=== PATIENT | female | born 2000 | race Two or more races ===

== ENCOUNTER → 2025-01-11 | Outpatient (CLI) | payer MEDICAID ==
[2025-01-11 14:38] LABS: Basophils # (auto) 0 10 ^3/uL (0-0.2); Basophils % (auto) 0.2 % (0.0-2.0); Eosinophils # (auto) 0.1 10 ^3/uL (0-0.8); Eosinophils % (auto) 1.4 % (0.0-7.0); Hematocrit 36.1 % (36.0-46.0); Hemoglobin 12.1 g/dL (12.2-16.2); Lymphocytes # (auto) 1.6 10 ^3/uL (0.4-5.4); Lymphocytes % (auto) 15.8 % (10.0-50.0); Mean Corpuscular Hemoglobin 26.1 pg (28.0-32.0); Mean Corpuscular Hgb Conc. 33.4 g/dL (32.0-36.0); Monocytes # (auto) 0.5 10 ^3/uL (0-1.3); Monocytes % (auto) 5.3 % (0.0-12.0); Neutrophils % (auto) 77.3 % (37.0-80.0); Platelet Count (auto) 289 10^3/uL (140-450); Red Blood Cells 4.63 10^6/uL (4.0-5.20); Red Cell Distribution Width 15.8 % (11.8-14.3); White Blood Cell 10.3 10^3/uL (4.4-10.8)
[2025-01-11 14:56] LABS: Amphetamine Screen, Urine Neg (NEGATIVE); Barbiturate Scree,Urine Neg (NEGATIVE); Benzodiazephine Screen, Urine Neg (NEGATIVE); Cocaine Screen, Urine Neg (NEGATIVE)
[2025-01-11 14:57] LABS: Cannabinoid Screen, Urine Pos (NEGATIVE); Opiate Scree,Urine Neg (NEGATIVE); Phencyclidine Screen, Urine Neg (NEGATIVE)
[2025-01-12 20:07] LABS: Chlamydia Trachomatis, NAA Negative (Negative); Neisseria gonorrhoeae, NAA Negative (Negative)
== END | disposition home or self-care (01) ==
LOC: LAB 14:06
PROVIDERS: ATTEND Obstetrics & Gynecology
DX: O23.40 Unspecified infection of urinary tract in pregnancy, unspecified trimester (principal); Z31.430 Encounter of female for testing for genetic disease carrier status for procreative management; Z20.09 Contact with and (suspected) exposure to other intestinal infectious diseases; N39.0 Urinary tract infection, site not specified; Z3A.00 Weeks of gestation of pregnancy not specified
CPT/HCPCS: 36415; 80307; 83036; 84144; 84702; 85025; 86703; 86762; 86780; 86850; 86900; 86901; 87086; 87340

== ENCOUNTER 2025-03-30 12:10 | Inpatient (IN) | payer MEDICAID ==
[~2025-03-30] VITALS: Ht 154.9 cm; Wt 128.4 kg
[2025-03-30 12:53] LABS: Hematocrit 32.6 % (36.0-46.0); Hemoglobin 10.7 g/dL (12.2-16.2); Mean Corpuscular Hemoglobin 25.4 pg (28.0-32.0); Mean Corpuscular Volume 77.5 fL (80.0-100.0); Nucleated Red Blood Cells % 0.0 %
[2025-03-30 12:57] LABS: Urine Protein, UAD TRACE (Negative)
[2025-03-30 13:07] LABS: Protein, Urine 35.4 mg/dL (1-14)
[2025-03-30 13:09] LABS: Albumin 3.7 g/dL (3.2-4.8); Anion Gap 7 (5-15); BUN/Creatinine Ratio 14.5 (10.0-20.0); Bilirubin, Total 0.5 mg/dL (0.2-1.0); Blood Urea Nitrogen 10 mg/dL (9-23); Carbon Dioxide 23 mmol/L (20-31); Glucose 84 mg/dL (74-106); Potassium 4.3 mmol/L (3.5-5.1); Sodium 139 mmol/L (136-145); Total Protein 6.4 g/dL (5.7-8.2); Uric Acid 4.2 mg/dL (3.1-7.8)
[2025-03-30 13:10] LABS: Alanine Aminotransferase 123 U/L (7-40); Alkaline Phosphatase 196 U/L (46-116); Calcium 8.4 mg/dL (8.7-10.4); Chloride 109 mmol/L (98-107)
[2025-03-30 13:14] LABS: INR 0.91 (0.9-1.15); Partial Thromboplastin Time 25.2 SEC (24.5-34.5); Prothrombin Time 9.7 sec (9.3-11.8)
[2025-03-30] MEDS: BETAMETHASONE ACET (30mg/5ml) 5ml Vial 6mg/ml IM ONE (14:10)
--- NOTE | 2025-03-30 14:31 | DVHTS ---
Transfer Summary Transfer Summary Date of Admission Mar 30, 2025 at 14:02 Date of Transfer: Mar 30, 2025 Transfer Diagnosis morbid obesity,iup at 29wks ,pih Brief Hx & Hospital Course: [facility] and transferred to [facility] .dr garibay accepted the transfer Transfer to: [facility] Discharge Instructions: via air Transfer Status stable Visit Coding OBGYN Date of Service: Mar 30, 2025 Billing Provider: DEYANIRA VELIZ DO LINE MAINTENANCE Common Visit Codes: 48588-[id number] OBS CARE (HIGH) LINE MAINTENANCE Consultation Codes: 84795-[id number] CONSULT <110MIN LINE MAINTENANCE Procedure Codes: 94967-00- NON-STRESS TEST DEYANIRA VELIZ DO Mar 30, 2025 14:31
--- NOTE | 2025-03-30 14:32 | DVHDS2 ---
Physician Discharge Progress N Final Diagnosis: morbid obesity,pih,29wks Operations or Procedures: Operations or Procedures nst reactive reviwed,sono,labs Condition on Discharge: Higher Level of Care Disposition: Acute Care Facility Discharge Instructions: Diet: Regular, See Comment Activity: Bed rest Medications: mg Follow Up Care: Specialist: to [facility] Discharge Statement: "Patient was advised to return to the ER or call 911 if any headaches, dizziness, shortness of breath, chest pain, abdominal pain, bleeding, fevers, or worsening of medical condition. Patient was counseled about treatment plan, medications, possible side effects, patientverbalized understanding. All questions were answered to the best of my ability. This discharge took greater then 30 minutes in planning, reviewing documentation, counseling the patient, and discussing with other team members." Visit Coding OBGYN Date of Service: Mar 30, 2025 Billing Provider: DEYANIRA VELIZ DO SENIOR GROUP MANAGER Common Visit Codes: 01213-[id number] OBS CARE (HIGH) SENIOR GROUP MANAGER Consultation Codes: [id number] CONSULT <110MIN SENIOR GROUP MANAGER Procedure Codes: 24481-91- NON-STRESS TEST DEYANIRA VELIZ DO Mar 30, 2025 14:32
--- NOTE | 2025-03-30 14:35 | DVHHP2 ---
OB CC & HPI Date Date of Admission: Mar 30, 2025 Patient Identification: : 3 Para: 1 EDC: Jun 09, 2025 EGA: 27wks Chief Complaints: Reason for admission: observation Admission Nurse Assessment Rev: No History of Present Complaints pt is admitte for [facility] ,same senario with previous preg for which she was hospitalized at [facility] till 35wks Past Medical History Cardiac: No pertinent Hx Pulmonary: No pertinent Hx Central Nervous System: No pertinent Hx GI: No pertinent Hx Hemotology/Oncology: No pertinent Hx Hepatobiliary: No pertinent Hx Psychiatric: No pertinent Hx Musculoskeletal: No pertinent Hx Rheumotologic: No pertinent Hx Infectious Disease: No peritnent Hx ENT: No pertinent Hx Renal/: No pertinent Hx Endocrine: No pertinent Hx Dermatology: No pertinent Hx Past Surgical History: No pertinent Hx OB History OB History Care: Good Care Ultrasounds: Normal mid trimester US Obstetrical Complications: None Medical Complications: None Allergies: Coded Allergies: NO KNOWN ALLERGIES (Unverified , 03/30/25) Family & Social History Family/Social History Blood Type: Unknown Rubella: unknown RPR/VDRL: Negative GBS Status: Unknown HBsAG: Negative Review of Systems Constitutional: No symptom reported Ears, Nose, & Throat: No symptom reported Eyes: No symptom reported Pulmonary/Respiratory: No symptom reported Cardiovascular: No symptom reported Gastrointestinal: No symptom reported Genitourinary: No symptom reported Musculoskeletal: No symptom reported Skin: No symptom reported Psychiatric: No symptom reported Endocrine: No symptom reported Hemotologic/Lymphatic: No symptom reported OB Admission Exam Physical Exam HEENT: TMs Normal, Fontanelles Normal, Nasal Mucosa Normal, Eyes non-injected, Oropharynx Normal, PERRLA, Moist Membranes, EOMI Heart: Rhythm Normal Lungs: Clear Abdomen: Non tender Extremities: Normal Reflexes: Normal Cervical Dilatation: Fingertip Effacement: 25% Station: -3 Membranes: Intact Heart Rate: 130's Accelerations: Accelerations Present Decelerations: No Decelerations Short Term Variability: Present Senior Living Variability: Average (6-25) Contractions on Admission: None OB Plan Plan Admitting Diagnosis: Admit for transfer to [facility] care [facility],iup at 29wks Other Plan: transfer to [facility] ,dr coppola accepted transfer Visit Coding OBGYN Date of Service: Mar 30, 2025 Billing Provider: DEYANIRA VELIZ DO SHANK SORTER Common Visit Codes: 33693-[id number] OBS CARE (HIGH) SHANK SORTER Consultation Codes: 39689-[id number] CONSULT <110MIN SHANK SORTER Procedure Codes: 55172-BDM.SURG: W/SALPINGOSTOMY DEYANIRA VELIZ DO Mar 30, 2025 14:35
== END 2025-03-30 15:35 | disposition short-term general hospital (02) | DRG 566 ==
LOC: LDRP 12:10 → OBSVTOIN 14:02
PROVIDERS: ADMIT Obstetrics & Gynecology; ATTEND Obstetrics & Gynecology
DX: O13.3 Gestational [pregnancy-induced] hypertension without significant proteinuria, third trimester (principal); E66.01 Morbid (severe) obesity due to excess calories; O99.213 Obesity complicating pregnancy, third trimester; Z3A.29 29 weeks gestation of pregnancy
CPT/HCPCS: 36415; 59025; 80053; 81001; 81002; 82570; 84156; 84550; 85025; 85610; 85730; 96360; 96361; 96372; G0378